=== PATIENT | female | born 1950 | race Caucasian/White ===

== ENCOUNTER 2024-12-14 16:50 | Observation (INO) | payer OTHER ==
[~2024-12-14] VITALS: Ht 157.5 cm; Wt 74.4 kg
[2024-12-14] MEDS ORDERED: METF500 PO (17:06)
[2024-12-14] MEDS ORDERED: GLIP5 PO (17:07)
[2024-12-14] MEDS ORDERED: INSULANI SC (17:07)
[2024-12-14] MEDS ORDERED: LOSA50 PO (17:08)
[2024-12-14] MEDS ORDERED: Simvastatin40 MG PO (17:09)
[2024-12-14] MEDS ORDERED: CHLO25B PO (17:10)
[2024-12-14 17:23] LABS: BASOPHILS ABSOLUTE AUTO 0.06 K/mm3 (0.00-0.23); BASOPHILS PERCENT AUTO 1 % (0-2); EOSINOPHILS PERCENT AUTO 2 % (0-6); Hematocrit 37.4 % (33.0-51.0); Hemoglobin 12.1 g/dL (11.5-16.0); IMMATURE GRAN ABSOLUTE AUTO 0.04 K/mm3 (0.00-0.10); IMMATURE GRAN PERCENT AUTO 0 % (0-1); LYMPHOCYTES ABSOLUTE AUTO 4.42 K/mm3 (0.84-5.20); LYMPHOCYTES PERCENT AUTO 34 % (21-46); MONOCYTES ABSOLUTE AUTO 0.85 K/mm3 (0.16-1.47); MONOCYTES PERCENT AUTO 7 % (4-13); Mean Corpuscular HGB 28.7 pg (26.0-34.0); Mean Corpuscular HGB Conc 32.4 g/dL (31.5-36.5); Mean Corpuscular Volume 89 fL (80-100); Mean Platelet Volume 10.6 fL (9.1-12.4); NEUTROPHILS ABSOLUTE AUTO 7.25 K/mm3 (1.96-9.15); NEUTROPHILS PERCENT AUTO 56 % (41-73); Platelet Count 343 K/mm3 (150-400); RDW Coefficient Variation 14.5 % (11.7-14.2); RDW Standard Deviation 47.1 fL (35.1-46.3); Red Blood Cell Count 4.21 M/mm3 (3.80-5.20); White Blood Cell Count 12.92 K/mm3 (4.00-11.30)
[2024-12-14 17:38] LABS: Albumin, Blood 3.5 g/dL (3.4-5.0); Albumin/Globulin Ratio 0.9 (0.8-1.8); Bilirubin, Total 0.4 mg/dL (0.1-1.0); Bun/Creatinine Ratio 21.1 (12.0-20.0); Calcium, Blood 8.9 mg/dL (8.5-10.1); Creatinine, Blood 1.42 mg/dL (0.40-1.00); Globulin, Blood 3.9 g/dL (2.2-4.0); Potassium, Blood 3.7 mmol/L (3.5-5.5); Total Protein, Blood 7.4 g/dL (6.4-8.2)
[2024-12-14] MEDS ORDERED: BENADRYL25 MG PO (19:15)
[2024-12-14] MEDS ORDERED: dilTIAZem HCL 100 MG in NS 100 ML IV SCH (19:50)
[2024-12-14] MEDS ORDERED: Diltiazem HCl 5 MG / ML 5ML Vial IV ONE (19:50)
[2024-12-14] MEDS ORDERED: Potassium Chloride 20 MEQ in NS 90 ML IV ONE (20:30)
[2024-12-14] MEDS ORDERED: FLU VACC TS2024-25(6MOS UP)/PF 45 MCG/0.5 ML SYRINGE IM ONE (22:15)
[2024-12-14] MEDS ORDERED: Ondansetron HCl 2 MG / ML 2ML Vial IV PRN (22:15)
[2024-12-14] MEDS ORDERED: NS 1,000 ML IV ONE ×2 (22:15→23:06)
[2024-12-14 22:19] LABS: Source, Urine Clean Catch
[2024-12-14 22:22] LABS: Bilirubin, Urine Neg (Neg); Blood, Urine Neg (Neg); Glucose Qualitative, Urine Neg (Neg); Ketones, Urine Neg (Neg); Leukocyte Esterase, Urine 3+ (Neg); Nitrite, Urine Neg (Neg); Protein, Urine Neg (Neg); Specific Gravity, Urine 1.005 (1.003-1.022); Urobilinogen, Urine NORM (Normal)
[2024-12-14 22:24] LABS: Appearance, Urine Clear (Clear); Color, Urine Pale Yellow (P-Yellow)
[2024-12-14 22:28] LABS: Bacteria Few /hpf; Red Blood Cells, Urine Not Seen /hpf (0-2); Squamous Epithelial Cells Few /hpf (Few)
[2024-12-14] MEDS ORDERED: Mag Sulfate 1 GM/D5% 100ML 100 ML IV STA (22:28)
[2024-12-14] MEDS ORDERED: Apixaban 5 MG Tab PO SCH (23:00)
[2024-12-14] MEDS ORDERED: Atorvastatin 10 MG Tab PO SCH (23:35)
[2024-12-15] MEDS ORDERED: Metoprolol Tartrate 25 MG Tab PO SCH
[2024-12-15 05:06] LABS: BASOPHILS ABSOLUTE AUTO 0.06 K/mm3 (0.00-0.23); BASOPHILS PERCENT AUTO 1 % (0-2); EOSINOPHILS ABSOLUTE AUTO 0.26 K/mm3 (0.00-0.68); EOSINOPHILS PERCENT AUTO 3 % (0-6); Hemoglobin 10.8 g/dL (11.5-16.0); IMMATURE GRAN ABSOLUTE AUTO 0.03 K/mm3 (0.00-0.10); IMMATURE GRAN PERCENT AUTO 0 % (0-1); LYMPHOCYTES ABSOLUTE AUTO 3.17 K/mm3 (0.84-5.20); LYMPHOCYTES PERCENT AUTO 32 % (21-46); MONOCYTES ABSOLUTE AUTO 0.79 K/mm3 (0.16-1.47); MONOCYTES PERCENT AUTO 8 % (4-13); Mean Corpuscular HGB 28.4 pg (26.0-34.0); Mean Corpuscular HGB Conc 31.8 g/dL (31.5-36.5); Mean Corpuscular Volume 90 fL (80-100); NEUTROPHILS ABSOLUTE AUTO 5.48 K/mm3 (1.96-9.15); NEUTROPHILS PERCENT AUTO 56 % (41-73); Platelet Count 296 K/mm3 (150-400); RDW Coefficient Variation 14.6 % (11.7-14.2); RDW Standard Deviation 47.5 fL (35.1-46.3); White Blood Cell Count 9.79 K/mm3 (4.00-11.30)
[2024-12-15 05:42] LABS: Albumin, Blood 2.9 g/dL (3.4-5.0); Albumin/Globulin Ratio 0.8 (0.8-1.8); Bilirubin, Total 0.4 mg/dL (0.1-1.0); Bun/Creatinine Ratio 22.3 (12.0-20.0); Calcium, Blood 8.5 mg/dL (8.5-10.1); Creatinine, Blood 1.12 mg/dL (0.40-1.00); Globulin, Blood 3.5 g/dL (2.2-4.0); Total Protein, Blood 6.4 g/dL (6.4-8.2)
[2024-12-15] MEDS ORDERED: Insulin Human Lispro 100 Units/ML 3ML Syringe SC SCH (07:30)
[2024-12-15] MEDS ORDERED: Losartan Potassium 25 MG Tab PO SCH (09:00)
[2024-12-15] MEDS ORDERED: Insulin Glargine-Yfgn 100 Unit/mL 3 ML SYR SC SCH (09:00)
[2024-12-15] MEDS ORDERED: HydroCHLOROthiazide 25 mg Tab PO SCH (09:00)
[2024-12-15] MEDS ORDERED: ELIQUIS5 M2 PO (16:15)
[2024-12-15] MEDS ORDERED: Lopressor 25 mg25 MG PO (16:15)
[2024-12-15] MEDS ORDERED: DiphenhydrAMINE HCL 25 MG Cap PO SCH (21:00)
== END 2024-12-15 16:25 | disposition home or self-care (01) ==
LOC: ER 16:50 → ERHOLD 16:51
PROVIDERS: Emergency Medicine; ADMIT Internal Medicine
DX: I48.91 Unspecified atrial fibrillation (principal); G45.9 Transient cerebral ischemic attack, unspecified; R47.81 Slurred speech; R29.810 Facial weakness; I10 Essential (primary) hypertension; E11.9 Type 2 diabetes mellitus without complications; E78.5 Hyperlipidemia, unspecified; Z79.899 Other long term (current) drug therapy; Z79.4 Long term (current) use of insulin; Z79.84 Long term (current) use of oral hypoglycemic drugs
CPT/HCPCS: 70450; 71045; 80053; 81001; 82947; 83735; 83880; 85025; 87086; 93005; 93010; 93306; 93880; 96365; 96366; 96367; 96375; 99285-25; A9270; G0378; J1815; J3475; J3480; J7030